=== PATIENT | male | born 1930 | race Caucasian/White ===

== ENCOUNTER 2017-09-23 20:38 | Emergency (ER) | payer MEDICARE, OTHER ==
[~2017-09-23] VITALS: Ht 180.3 cm; Wt 105.0 kg
[~2017-09-23 20:38] MED LIST: AMLO5TAB2 PO; CETI-18 PO; CHOL100011 PO; CYAN1TAB29 PO; HYDR25TA6 PO; HYDR5POW PO; METF-163 PO; MONT10TA6 PO; RANI300C PO; RANI300T PO; ROSU5TAB PO; VERA120T5 PO; VITA1TAB19 PO
[2017-09-23 20:55] VITALS: BP 173/79
== END 2017-09-23 21:51 | disposition home or self-care (01) ==
LOC: ED 21:45
DX: T16.2XXA Foreign body in left ear, initial encounter (principal); Z88.5 Allergy status to narcotic agent; Z87.891 Personal history of nicotine dependence; Z88.8 Allergy status to other drugs, medicaments and biological substances; X58.XXXA Exposure to other specified factors, initial encounter; Y93.89 Activity, other specified; Y99.8 Other external cause status; Y92.89 Other specified places as the place of occurrence of the external cause
CPT/HCPCS: 69200; 99284

== ENCOUNTER 2018-08-29 19:50 | Emergency (ER) | payer MEDICARE, OTHER ==
[~2018-08-29] VITALS: Ht 182.9 cm; Wt 103.6 kg
[~2018-08-29 19:50] MED LIST changes: +AMLO-150 PO; -AMLO5TAB2 PO
[2018-08-29 20:01] VITALS: BP 155/77
[2018-08-29] MEDS ORDERED: CARBAMIDE PEROXIDE EAR DROPS 6.5%, 15ML ONE ×2 (20:35→20:37)
--- NOTE | 2018-08-29 20:42 | NUR ---
first bottle of debrox clumped in bottle. new bottle taken from [employer] and used.
[2018-08-29] MEDS ORDERED: CARBAMIDE PEROXIDE EAR DROPS 6.5%, 15ML LEFT EAR ONE (21:00)
[2018-08-29] MEDS ORDERED: CARBAMIDE PEROXIDE EAR DROPS 6.5%, 15ML RIGHT EAR ONE (21:00)
== END 2018-08-29 21:50 | disposition home or self-care (01) ==
LOC: ED 21:08
DX: T16.2XXA Foreign body in left ear, initial encounter (principal); H61.23 Impacted cerumen, bilateral; E11.9 Type 2 diabetes mellitus without complications; I10 Essential (primary) hypertension; X58.XXXA Exposure to other specified factors, initial encounter; Y93.89 Activity, other specified; Y92.89 Other specified places as the place of occurrence of the external cause; Y99.8 Other external cause status
CPT/HCPCS: 69200; 69209; 99284